=== PATIENT | female | born 1995 | race Caucasian/White ===

== ENCOUNTER 2017-04-30 23:57 | Emergency (ER) | payer OTHER ==
[2017-05-01 00:47] VITALS: BP 132/53
== END 2017-05-01 00:47 | disposition home or self-care (01) ==
LOC: ED 23:57
DX: H60.501 Unspecified acute noninfective otitis externa, right ear (principal)

== ENCOUNTER 2018-07-29 21:09 | Emergency (ER) | payer OTHER ==
[2018-07-29 21:12] VITALS: Ht 162.6 cm
[2018-07-29 22:00] VITALS: BP 117/69
== END 2018-07-29 22:00 | disposition home or self-care (01) ==
LOC: ED 21:09
DX: J03.90 Acute tonsillitis, unspecified (principal); M94.0 Chondrocostal junction syndrome [Tietze]
CPT/HCPCS: Q0092